=== PATIENT | female | born 1985 | race Native Hawaiian/Other Pacific Islander ===

== ENCOUNTER 2018-11-13 18:13 | Emergency (ER) | payer OTHER ==
[~2018-11-13] VITALS: Ht 165.1 cm; Wt 75.5 kg
[2018-11-13] MEDS ORDERED: SYNT112T2 PO (18:47)
[2018-11-13 18:50] LABS: BASO # 0.1 10^3/uL (0.0-0.2); BASO % 0.8 % (0.0-1.0); EOS # 0.1 10^3/uL (0.0-0.5); EOS % 2.4 % (0.0-3.0); HEMATOCRIT 34.3 % (36.0-47.0); HEMOGLOBIN 11.3 g/dl (12.0-15.5); LYMPH # 1.5 10^3/uL (1.5-5.0); LYMPH % 24.8 % (24.0-44.0); MEAN CORPUSCULAR HEMOGLOBIN 30.2 pg (27.0-33.0); MEAN CORPUSCULAR HGB CONC 32.9 g/dl (32.0-36.5); MEAN CORPUSCULAR VOLUME 91.7 fl (80.0-96.0); MONO # 0.3 10^3/uL (0.0-0.8); MONO % 4.6 % (0.0-5.0); NEUTROPHILS % 67.1 % (36.0-66.0); PLATELET COUNT, AUTOMATED 234 10^3/uL (150-450); RED BLOOD COUNT 3.74 10^6/uL (4.00-5.40); WHITE BLOOD COUNT 5.9 10^3/uL (4.0-10.0)
[2018-11-13 19:16] LABS: BLOOD UREA NITROGEN 9 MG/DL (7-18); CALCIUM LEVEL 8.8 MG/DL (8.5-10.1); CARBON DIOXIDE LEVEL 30 MEQ/L (21-32); CHLORIDE LEVEL 107 MEQ/L (98-107); GLOMERULAR FILTRATION RATE > 60.0 (>60); GLUCOSE, FASTING 106 MG/DL (70-100); HCG, SERUM QUANTITATIVE 556 MIU/ML; SODIUM LEVEL 140 MEQ/L (136-145)
--- NOTE | 2018-11-13 22:29 | REPVR ---
EXAM: US First Trimester, Transabdominal and US , Transvaginal EXAM DATE/TIME: 11/13/2018 9:59 PM CLINICAL HISTORY: 33 years old, female; complicated by abdominal or pelvic pain; Lower; First trimester; Gestational age or lmp: 6w3d; ; Additional info: Vaginal bleeding TECHNIQUE: Imaging protocol: Real-time transabdominal obstetrical ultrasound of the maternal pelvis and a first trimester , less than 14 weeks 0 days, with image documentation. Transvaginal imaging was used for better evaluation of the fetus and adnexa. COMPARISON: No relevant prior studies available. FINDINGS: Other findings: 5 mm demonstrated. GESTATION: Gestation: Small gestational sac demonstrated within the uterine fundus with an average sac size of 7.7 mm. No pole demonstrated. Heart rate: No cardiac activity demonstrated. Amniotic/chorionic fluid: Amniotic and chorionic fluid are normal for gestational age. BIOMETRY: Estimated gestational age: Gestational age based on sac size is 5 weeks 4 days versus 6 weeks 3 days using LMP of 09/29/2018. MATERNAL: Uterus: Uterus measures 8.1 x 4.4 x 5.1 cm. Cervix: Unremarkable. Right adnexa: Right ovary measures 2.9 x 1.1 x 1 cm. Left adnexa: Left ovary measures 2.9 x 1.7 x 1.5 cm. Small cyst in the left ovary measures 1.6 1.4 x 1.2 cm. Intraperitoneal: Trace free fluid in the cul-de-sac. IMPRESSION: Probable early intrauterine gestation of 5 weeks 4 days before visualization of the fetus. Reported beta-hCG levels are weakly positive. Followup ultrasound recommended to document the presence of a pole and cardiac activity and to exclude early failure. Electronically signed by: David Beckett On 11/13/2018 22:29:00 PM
[2018-11-13 23:12] VITALS: BP 138/78
== END 2018-11-13 23:20 | disposition home or self-care (01) ==
LOC: M ED 18:13
DX: O20.0 Threatened abortion (principal); O34.81 Maternal care for other abnormalities of pelvic organs, first trimester; N83.202 Unspecified ovarian cyst, left side; Z3A.01 Less than 8 weeks gestation of pregnancy; O99.281 Endocrine, nutritional and metabolic diseases complicating pregnancy, first trimester; E03.9 Hypothyroidism, unspecified; Z79.890 Hormone replacement therapy

== ENCOUNTER 2018-11-14 13:43 | Day surgery (SDC) | payer OTHER ==
[~2018-11-14] VITALS: Ht 165.1 cm; Wt 74.9 kg
[~2018-11-14 13:43] MED LIST: SYNT112T2 PO
[2018-11-14 14:26] LABS: BASO # 0.1 10^3/uL (0.0-0.2); BASO % 0.7 % (0.0-1.0); EOS # 0.1 10^3/uL (0.0-0.5); EOS % 1.8 % (0.0-3.0); HEMATOCRIT 36.1 % (36.0-47.0); HEMOGLOBIN 12.2 g/dl (12.0-15.5); LYMPH # 1.1 10^3/uL (1.5-5.0); LYMPH % 14.3 % (24.0-44.0); MEAN CORPUSCULAR HEMOGLOBIN 31.7 pg (27.0-33.0); MEAN CORPUSCULAR HGB CONC 33.8 g/dl (32.0-36.5); MEAN CORPUSCULAR VOLUME 93.8 fl (80.0-96.0); MONO # 0.3 10^3/uL (0.0-0.8); MONO % 4.5 % (0.0-5.0); NEUTROPHILS # 5.8 10^3/uL (1.5-8.5); NEUTROPHILS % 78.4 % (36.0-66.0); PLATELET COUNT, AUTOMATED 237 10^3/uL (150-450); RED BLOOD COUNT 3.85 10^6/uL (4.00-5.40); WHITE BLOOD COUNT 7.3 10^3/uL (4.0-10.0)
[2018-11-14] MEDS ORDERED: NS 1,000 ML IV ONE (17:45)
[2018-11-14 18:12] LABS: FREE T4 1.09 NG/DL (0.76-1.46); THYROID STIMULATING HORMONE 3.62 uIU/ML (0.358-3.740)
[2018-11-14] MEDS ORDERED: ROCURONIUM BROMIDE 50 MG/5 ML VIAL As Ordered ONE (18:38)
[2018-11-14] MEDS ORDERED: LIDOCAINE 2% INJ 100 MG/5 ML SDV (FOR ANES.) As Ordered ONE (18:38)
[2018-11-14] MEDS ORDERED: dexameTHASONE 4 MG/ML 1ML VIAL (J1100) As Ordered ONE (18:38)
[2018-11-14] MEDS ORDERED: ONDANSETRON 4MG/2ML VIAL (J2405) As Ordered ONE (18:38)
[2018-11-14] MEDS ORDERED: PROPOFOL 200 MG/20 ML VIAL As Ordered ONE (18:38)
[2018-11-14] MEDS ORDERED: fentaNYL 100 MCG/2 ML INJECTION (J3010) As Ordered ONE (18:39)
[2018-11-14] MEDS ORDERED: MIDAZOLAM INJ 2 MG/2 ML VIAL (J2250) As Ordered ONE (18:39)
[2018-11-14] MEDS ORDERED: ACETAMINOPHEN 650 MG SUPP As Ordered ONE (19:24)
[2018-11-14] MEDS ORDERED: OXYTOCIN INJ 10 UNITS/ML VIAL (J2590) As Ordered ONE (19:37)
[2018-11-14] MEDS ORDERED: SUGAMMADEX SODIUM 500 MG/5 ML VIAL (BRIDION) As Ordered ONE (19:41)
[2018-11-14] MEDS ORDERED: KETOROLAC 60 MG/2 ML VIAL (J1885) As Ordered ONE (19:45)
[2018-11-14] MEDS ORDERED: KETOROLAC 30 MG/ML VIAL (J1885) IV PRN (20:00)
[2018-11-14] MEDS ORDERED: ePHEDrine SULFATE 25 MG/5 ML(5MG/ML) SYRINGE As Ordered ONE (20:03)
[2018-11-14] MEDS ORDERED: fentaNYL 100 MCG/2 ML INJECTION (J3010) IV PRN (20:15)
[2018-11-14] MEDS ORDERED: LR 1,000 ML IV SCH (20:15)
[2018-11-14] MEDS ORDERED: PERCOCET 5MG/325MG TAB PO PRN (20:15)
[2018-11-14] MEDS ORDERED: ONDANSETRON 4MG/2ML VIAL (J2405) IV PRN (20:15)
--- NOTE | 2018-11-14 20:25 | HPE ---
DATE OF ADMISSION: 11/14/2018 This lady is a 33-year-old 4, para 2, abortus 1, last menstrual period (LMP) was 09/29/2018. She was seen yesterday in the emergency department with a quant of 556 and vaginal bleeding. Ultrasound suggested intrauterine contents suggestive of early . She returned today to the emergency room bleeding more significantly with cramping and clotting and severe pain. Her quant was 512. PAST HISTORY: In 2007, female, normal delivery 40 weeks, 6 pounds 7 ounces. 2009, female, spontaneous vaginal delivery, 40 weeks, 6 pounds. 2016, suction curette for 12-week gestation. She has also had wisdom teeth removed. She works in the [employer]. 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 Her last period was September 29, 2018. She has hypothyroidism, takes Synthroid, although she has not had her thyroid checked since 2018. ALLERGIES: She has no allergies. Her blood pressure today is 113/62, respirations are 21, pulse is 67, temperature 98.4, hemoglobin 12.2, hematocrit 36.1 and platelets are 237. Her quant as mentioned is 512, she is O+. The rest of examination, the os is open. There is some blood fresh and old and the uterine contents are still present. The rest examination, she is normocephalic, atraumatic. Neck: Full range of motion. Pupils equal and reactive to light. Distal pulses symmetric. No evidence of deep vein thrombosis (DVT), pulmonary emboli (PE) or superficial phlebitis. Chest is clear in bilateral bases. No wheezes or rhonchi. No CVA tenderness. Abdomen soft. She has no rashes, lesions or pruritus. No arthralgia, myalgia. No complaint of joint pain. No complaint of cough, wheeze, shortness of breath or dyspnea on exertion. No nausea, vomiting, diarrhea or constipation. We discussed with her the option of having a suction curettage at a planned interval. Risks and benefits of her surgery including hemorrhage, infection, perforation, , reoperation, continue retained products of conception, the possibility of endometritis. The patient understood after 25-minutes discussion regarding the risks and benefits of the surgery, agree, had a signed consent form. We now await, anesthesia for evaluation and operative time. In summary, we have an early gestation with retained products of conception booked for suction curettage.
[2018-11-14 21:30] VITALS: BP 126/81
--- NOTE | 2018-11-16 07:04 | RO ---
DATE OF PROCEDURE: 11/14/2018 PREOPERATIVE DIAGNOSIS: Incomplete . POSTOPERATIVE DIAGNOSIS: Incomplete . OPERATION PROPOSED: Suction curettage. OPERATION PERFORMED: Suction curettage. ANESTHESIA: General. ESTIMATED BLOOD LOSS: Less than 20 mL. SURGERON: Dr. Noe Toro After adequate time-out, prepped and draped in lithotomy position, acetaminophen suppository 1300 grams per rectum, sequentials in place. No antibiotics required. Bladder was drained for 50 mL of clear urine. Weighted speculum in the vagina, a single-tooth tenaculum on the anterior lip of the cervix. Uterus sounded to a depth of 9 cm, dilated to a Proctor 10, curved suction curette applied. Curettaged the cavity smooth. Uterus placed in anatomical position, well contracted under Pitocin. The patient is O positive and does not require RhoGAM. Was sent to recovery in good condition.
== END 2018-11-14 21:30 | disposition home or self-care (01) ==
LOC: M ED 13:43 → M SDC 13:46
PROVIDERS: ATTEND Obstetrics & Gynecology
DX: O02.1 Missed abortion (principal); E03.9 Hypothyroidism, unspecified; Z79.899 Other long term (current) drug therapy
CPT/HCPCS: 59820; 80047; 84439; 84443; 84702; 85025; 88305; 96360; 99284; J1100; J1885; J2250; J2405; J2590; J3010

== ENCOUNTER 2020-04-15 06:04 | Outpatient (CLI) | payer OTHER ==
[~2020-04-15] VITALS: Ht 165.1 cm; Wt 88.8 kg
[2020-04-15 06:27] VITALS: BP 111/73
[2020-04-15 06:44] LABS: HEMATOCRIT 36.4 % (36.0-47.0); HEMOGLOBIN 11.8 g/dl (12.0-15.5); MEAN CORPUSCULAR HEMOGLOBIN 30.3 pg (27.0-33.0); MEAN CORPUSCULAR HGB CONC 32.4 g/dl (32.0-36.5); MEAN CORPUSCULAR VOLUME 93.6 fl (80.0-96.0); PLATELET COUNT, AUTOMATED 266 10^3/uL (150-450); RED BLOOD COUNT 3.89 10^6/uL (4.00-5.40); WHITE BLOOD COUNT 9.1 10^3/uL (4.0-10.0)
--- NOTE | 2020-04-15 09:40 | IPNPDOC ---
Obstetrical Progress Note Date of Service Apr 15, 2020 Objective Vital Signs Date Time Temp Pulse Resp B/P (MAP) Pulse Ox O2 Delivery O2 Flow Rate FiO2 04/15/20 06:27 98.3 96 18 111/73 (86) Assessment Heart Rate (FHR): 130 Variability: Moderate Accelerations: Positive Decelerations: None Heart Rate Tracing: Category I Tocometer Contractions: Yes Frequency: irregular Assessment and Plan Status: Reassuring Additional Comments Patient is at 35yo at 37+3 who presented today for ECV but was cephalic on US on arrival. She has normal VS and CAT I tracing. She was given routine OB return precautions and she has a KIKO apt scheduled. She is to notify me if she feels large shifts or feel like he baby has flipped. I will check her baby again at the next apt. EBONY LOVING DO Apr 15, 2020 09:40
== END 2020-04-15 07:25 | disposition home or self-care (01) ==
LOC: M LDO 06:04
PROVIDERS: ATTEND Obstetrics & Gynecology
DX: O32.1XX0 Maternal care for breech presentation, not applicable or unspecified (principal); Z3A.37 37 weeks gestation of pregnancy
CPT/HCPCS: 36415; 59025; 76815; 85027; 86780; 86850; 86900; 86901; G0378; G0463

== ENCOUNTER 2020-05-02 03:17 | Inpatient (IN) | payer OTHER ==
[~2020-05-02] VITALS: Ht 165.1 cm; Wt 93.0 kg
[2020-05-02] VITALS (44 sets, daily range): BP systolic 113–228; BP diastolic 67–128
[2020-05-02 04:26] LABS: HEMATOCRIT 32.6 % (36.0-47.0); HEMOGLOBIN 10.8 g/dl (12.0-15.5); MEAN CORPUSCULAR HEMOGLOBIN 30.1 pg (27.0-33.0); MEAN CORPUSCULAR HGB CONC 33.1 g/dl (32.0-36.5); MEAN CORPUSCULAR VOLUME 90.8 fl (80.0-96.0); PLATELET COUNT, AUTOMATED 244 10^3/uL (150-450); RED BLOOD COUNT 3.59 10^6/uL (4.00-5.40); WHITE BLOOD COUNT 8.9 10^3/uL (4.0-10.0)
--- NOTE | 2020-05-02 04:26 | HPEPDOC ---
Obstetrical History & Physical General Date of Admission History of Present Illness 34yo at 39+6 presents for SROM at 0100 clear no odors. She endorsed some pink vaginal bleeding when she wipes. She endorsed regular painful contractions ever 5 minutes. She reports good movement. She denied n/v/d, cp, sob, tom, visual changes, f/c, urinary sx. Antepartum Course Height (inches): 65 Pre- weight (lbs.): 152 Admission Weight (lbs.): 203 Change in Weight (lbs.): 51 Past Medical History Past Obstetrical History : Past Obstetrical History: Multigravida ( x2 uncomplicated largest 7#8, SAB x1 expectant management) Type of Delivery: Spontaneous Vaginal Del. FORGING OPERATOR History: Human papillomavirus(HPV) (2018), History of STD (chlamydia ) Past Medical History Medical History hypothyroidism Surgical History: [place] teeth Family History Significant Family History: No pertinent family hx Social History Marital Status: Family situation: Spouse/partner home Psychosocial History: No pertinent psych hx * Smoker: non-smoker Alcohol: Denies Drugs: denies Imunizations Tdap status: current Influenza Status: current Allergies Coded Allergies: No Known Allergies (Unverified , 11/13/18) Medications Scheduled Levothyroxine Sodium (Synthroid) 112 Mcg Tablet, 112 MCG PO DAILY Physical Examination Physical Examination GENERAL: Alert and oriented times three. BREAST: . ABDOMEN: Gravid and non-tender to touch. FETUS: Is vertex (VTX) by sterile vaginal examination (SVE), fetus is vertex (VTX) by exam and US. Ferning positive, nitrazine positive (although some bleeding from cervical change), pooling slight, MVP 6cm. HEART RATE: Regular rate and rhythm. LUNGS: Clear to auscultation (CTA). EXTREMITIES: No edema. No clonus. Laboratory Data Urine Culture: Urinary Tract Infection Pertinent Laboratoy Data Blood Type: O+ RBC Antibody Screen: Negative HIV: Negative Hepatitis B: Negative Rapid Plasma Reagin: Nonreactive Rubella: Immune Varicella: Nonreactive Chlamydia/Gonorrhea: Negative Group B Streptococcus: Negative Quad Screen Test: Negative Glucose Tolerance Test: 104 Anatomy Ultrasound Placenta Location: Anterior Normal Anatomy: No (russell cisterna magna) Estimated Weight (grams): 3800 Steroid Therapy Steroid Therapy: No Vaginal Examination Dilation: 4 cm Effacement: 50% Cervical Consistency: Soft Cervical Position: Anterior Presentation: Cephalic presentation (by exam and US) Assessment Heart Rate (FHR): 130 Variability: Moderate Accelerations: Positive Decelerations: None Tocometer Contractions: Yes Frequency: regular Multi-drug resistant Organism: No history of MDRO Assessment/Plan Assessment 34yo at 39+6 presents for SROM at 0100 clear no odors. Ferning positive, nitrazine positive (although some bleeding from cervical change), pooling slight, MVP 6cm. Normal VS CAT I tracing reactive. SVE on admit /-3. 1. excessive weight gain 50# 2. hypothyroidism - 125mcg synthroid in , 112mcg pre- (has at home) 3. russell cisterna magna (per MFM likely normal variant) 4. varicella non-[place] 5. LV echogenic foci, normal genetic screening 6. anemia of , admit H/H 7. desires minipill (has at home) 8. unstable lie, cephalic at time of ECV, cephalic on admit Plan Admit and orient. Climatologist and consent. Diet: clears Group B Streptococcus (GBS) [negative]. Labs and intravenous (IV) per unit protocol. Counseled on Pitocin and induction of labor (IOL). Lactated Ringers (LR): saline lock iv Anticipate [normal spontaneous delivery ()]. will recheck in 2h and if unchanged start pit for augmentation C-S as appropriate. EBONY LOVING DO May 02, 2020 04:26
[2020-05-02] MEDS ORDERED: OXYTOCIN 30 UNITS IN 0.9% NaCl 500ML IV BAG (J2590) As Ordered ONE (05:43)
[2020-05-02] MEDS ORDERED: OXYTOCIN DRIP 30 UNITS in IV 1 EA IV SCH ×2 (05:45→17:20)
[2020-05-02] MEDS: LR 1,000 ML IV SCH ×4 (06:03→16:00)
--- NOTE | 2020-05-02 07:20 | IPNPDOC ---
Obstetrical Progress Note Date of Service May 02, 2020 Subjective Strip note. RN reports pt has some increased pressure but is tolerating well. Assessment Heart Rate (FHR): 135 Variability: Moderate Accelerations: Positive Decelerations: Early Heart Rate Tracing: Category I Tocometer Contractions: Yes Assessment and Plan Status: Reassuring Anticipate: Vaginal Delivery Additional Comments CAT I tracing, reactive. No pt issues per nursing. VS with mild range x2, severe range x1 with mild repeat. Will order tox labs. Per RN no si/sx of pre-e at this time. Will continue to monitor and reassess in 2-4h or sooner if clinically indicated. EBONY LOVING DO May 02, 2020 07:20
[2020-05-02 10:52] LABS: HEMATOCRIT 36.6 % (36.0-47.0); MEAN CORPUSCULAR HEMOGLOBIN 30.4 pg (27.0-33.0); MEAN CORPUSCULAR HGB CONC 32.8 g/dl (32.0-36.5); MEAN CORPUSCULAR VOLUME 92.7 fl (80.0-96.0); PLATELET COUNT, AUTOMATED 258 10^3/uL (150-450); RED BLOOD COUNT 3.95 10^6/uL (4.00-5.40); WHITE BLOOD COUNT 13.4 10^3/uL (4.0-10.0)
[2020-05-02 11:22] LABS: ALBUMIN 2.8 GM/DL (3.2-5.2); ALT/SGPT 27 U/L (12-78); BILIRUBIN,TOTAL 0.3 MG/DL (0.2-1.0); BLOOD UREA NITROGEN 6 MG/DL (7-18); CALCIUM LEVEL 8.6 MG/DL (8.5-10.1); CARBON DIOXIDE LEVEL 25 MEQ/L (21-32); CHLORIDE LEVEL 106 MEQ/L (98-107); CREATININE FOR GFR 0.77 MG/DL (0.55-1.30); GLOMERULAR FILTRATION RATE > 60.0 (>60); GLUCOSE, FASTING 90 MG/DL (70-100); LDH LACTATE DEHYDROGENASE 227 U/L (84-246); POTASSIUM SERUM 4.3 MEQ/L (3.5-5.1); SODIUM LEVEL 139 MEQ/L (136-145); TOTAL PROTEIN 6.6 GM/DL (6.4-8.2); URIC ACID 4.8 MG/DL (2.6-6.0)
--- NOTE | 2020-05-02 12:48 | IPNPDOC ---
Obstetrical Progress Note Date of Service May 02, 2020 Subjective 35yo at 39+6wks admitted for SROM and started on pitocin augmentation of labor. She reports feeling ctx's and pressure but no urge to push. She declines epidural. She desires SVE. Objective Vital Signs Date Time Temp Pulse Resp B/P (MAP) Pulse Ox O2 Delivery O2 Flow Rate FiO2 05/02/20 11:00 97.5 60 16 173/83 (113) Assessment Heart Rate (FHR): 135 Variability: Moderate Accelerations: None Decelerations: Early Heart Rate Tracing: Category I Tocometer Contractions: Yes Frequency: every 2-2 min. Sterile Vaginal Examination Dilation: 9 cm Effacement (%): 100% Station: 0 Cervical Consistency: Soft Cervical Position: Lateral (right lateral) Postion/Presentation: Cephalic presentation Assessment and Plan Status: Reassuring Group B Streptococcus: Negative Anticipate: Vaginal Delivery Additional Comments Patient has made excellent progress. SVE notable for 9/c/0 with BBOW. Cervical exam notable for cervix only on right lateral from 7 to 11 o'clock position. Patient desired AROM of BBOW that was performed notable for light meconium. She was assisted to hands/knees position with support of the back of the bed per her request for position change. Advised that the pressure and contractions will continue but that I would recommend avoiding starting pushing until she feels ur ge to push. She acknowledged understanding. FHRT cat I. Pitocin at 4mU/min. Patient desires to proceed, safe to continue. JEROME JOHNSON DO May 02, 2020 12:48
--- NOTE | 2020-05-02 12:50 | IPNPDOC ---
Text Note Date of Service The patient was seen on 05/02/20. NOTE Patient noted to have severe-range BP develop with worsening of painful ctx's. Denies ROD. visual changes, RUQ pain. PIH labs were not completed earlier when initially ordered therefore completed now and noted to be normal (unable to obtain urine protein due to blood/amniotic fluid and patient declines cath at this time). As patient is close to delivery at this time, will monitor closely. If severe-range BP persist after delivery recommend starting Mg therapy for maternal neuroprotection. VS,Fishbone, I+O VS, Fishbone, I+O Laboratory Tests 05/02/20 04:19 05/02/20 10:39 Vital Signs Date Time Temp Pulse Resp B/P (MAP) Pulse Ox O2 Delivery O2 Flow Rate FiO2 05/02/20 11:00 97.5 60 16 173/83 (113) JEROME JOHNSON DO May 02, 2020 12:50
[2020-05-02] MEDS ORDERED: FENTANYL 2MCG/ML ROPIVACAINE 0.2% IN 0.9% NACL 100ML IVBAG As Ordered ONE (13:30)
[2020-05-02 16:02] LABS: TOTAL PROTEIN,RANDOM URINE 136.7 MG/DL (0.0-12.0)
[2020-05-02] MEDS ORDERED: ePHEDrine SULFATE 25 MG/5 ML(5MG/ML) SYRINGE IV PRN (16:45)
[2020-05-02] MEDS ORDERED: NALOXONE INJ 0.4MG/1ML VIAL (J2310 PER 1MG) IV PRN (16:45)
[2020-05-02] MEDS ORDERED: EPIDURAL/PCA KEYS XX PRN (16:45)
[2020-05-02] MEDS ORDERED: FENTANYL/ROPIVACAINE/NACL BAG 100 ML EPIDURAL SCH (16:45)
[2020-05-02] MEDS ORDERED: EPIDURAL COMMENT XX SCH (16:45)
[2020-05-02] MEDS ORDERED: LACTATED RINGER'S 1000 ML IV PRN (16:45)
[2020-05-02] MEDS ORDERED: ONDANSETRON 4MG/2ML VIAL IV PRN (16:45)
[2020-05-02] MEDS ORDERED: REFRIGERATOR IV KEYS XX PRN (16:45)
[2020-05-02] MEDS ORDERED: diphenhydrAMINE 50MG/ML VIAL (J1200) IV PRN (16:45)
[2020-05-02] MEDS ORDERED: ACETAMINOPHEN 500 MG TAB PO PRN (17:30)
[2020-05-02] MEDS ORDERED: IBUPROFEN 600MG TAB PO PRN (17:30)
[2020-05-02] MEDS ORDERED: METHYLERGONOVINE MALEATE 0.2 MG TAB PO PRN (17:30)
[2020-05-02] MEDS ORDERED: DIBUCAINE 1% OINTMENT 30GM TOP PRN (17:30)
[2020-05-02] MEDS ORDERED: IBUPROFEN 800 MG TAB PO PRN (17:30)
[2020-05-02] MEDS ORDERED: ACETAMINOPHEN TAB 650MG DOSE (2X325MG) PO PRN (17:30)
[2020-05-02] MEDS ORDERED: DOCUSATE SODIUM 100MG CAPSULE PO PRN (17:30)
[2020-05-02 17:32] LABS: CORD GAS ABE A -11.9; CORD GAS HCO3 A 20.2 MEQ/L; CORD GAS O2 SAT A 34.3 %; CORD GAS PCO2 A 74.1 mmHg; CORD GAS PH A 7.053 UNITS; CORD GAS PO2 A 21.2 mmHg; CORD GAS SBC A 14.1 MEQ/L; CORD GAS TCO2 A 22.5 MEQ/L
[2020-05-02 17:40] LABS: CORD GAS ABE V -9.7; CORD GAS HCO3 V 19.7 MEQ/L; CORD GAS O2 SAT V 35.1 %; CORD GAS PCO2 V 55.9 mmHg; CORD GAS PH V 7.164 UNITS; CORD GAS PO2 V 18.9 mmHg; CORD GAS SBC V 15.5 MEQ/L; CORD GAS TCO2 V 21.4 MEQ/L
--- NOTE | 2020-05-02 17:48 | DNPDOC ---
[facility] Delivery Note Delivery Note DATE OF DELIVERY: 05/02/2020 PREDELIVERY DIAGNOSIS: 39+6/7 weeks' gestation and labor. POST DELIVERY DIAGNOSIS: Delivered. PROCEDURE: Vacuum-assisted vaginal delivery. MANAGER NICU: Dr. Jerome Zavala ANESTHESIA: Epidural ESTIMATED BLOOD LOSS: 100mL. FINDINGS: 8 pound 2 ounce 3682g male , Score 3/6/9, nuchal cord times x1. DELIVERY SUMMARY: Patient found to be c/c/+1 and began pushing. FHRT cat II notable for variable decels to the 80s with minimal variability. Positional changes applied with improvement in FHR to allow for continued pushing efforts. With descent of head to +3 station over several pushes, worsening of FHR to persistently in 80s- 90s. Patient pushing well but unable to effect immediate delivery. Patient verbally counseled on recommendation for operative vaginal delivery assistance using Kiwi vacuum. Briefly reviewed risks, benefits, alternatives, and indications and patient amenable to vacuum-assistance. Bladder had been drained by recently-removed paredes catheter. position JAIME. Kiwi vacuum applied over the flexion point and suction increased to 60mmHg when patient began pushing with contraction. Over 2 sets of contractions and 1 pop-off, head delivered in JAIME position. The suction was released in between contractions and then released prior to Kiwi vacuum removed. Meconium fluid noted. Tight nuchal cord x1 delivered through then manually reduced. Anterior shoulder delivered without difficulty followed by posterior shoulder and body. Infant placed on maternal abdomen with airway cleared aggressively with suction due to presence of meconium. Infant initially with good tone but then became floppy therefore three vessel cord clamped x2 and cut by 45 seconds of life and taken to warmer. Pitocin IV bolus initiated. Cord gases obtained. Cord blood sample obtained. Inspection revealed no lacerations. Third stage spontaneous with intact placenta. Fundal massage revealed firm uterine tone. EBL 100ml. Infant was taken to NICU for respiratory support and per unit protocol for use of vacuum in delivery. Mother stable upon my leaving the room. Item Value Date Time Cord Arterial Blood pH 7.053 UNITS 05/02/201718 Cord Arterial Blood PCO2 74.1 mmHg 05/02/201718 Cord Arterial Blood PO2 21.2 mmHg 05/02/201718 Cord Arterial Blood HCO3 20.2 MEQ/L 05/02/201718 Cord Arterial Blood Total CO2 22.5 MEQ/L 05/02/201718 Cord Arterial Blood Base Excess -11.9 05/02/201718 Cord Arterial Base Excess (Standard 14.1 MEQ/L 05/02/201718 Cord Arterial Bld Oxygen Saturation 34.3 % 05/02/201718 Item Value Date Time Cord Venous Blood pH 7.164 UNITS 05/02/201718 Cord Venous Blood PCO2 55.9 mmHg 05/02/201718 Cord Venous Blood PO2 18.9 mmHg 05/02/201718 Cord Venous Blood HCO3 19.7 MEQ/L 05/02/201718 Cord Venous Blood Total CO2 21.4 MEQ/L 05/02/201718 Cord Venous Base Excess (Actual) -9.7 05/02/201718 Cord Venous Base Excess (Standard) 15.5 MEQ/L 05/02/201718 Cord Venous Blood Oxygen Saturation 35.1 % 05/02/201718 JEROME ZAVALA DO May 02, 2020 17:48
[2020-05-02] MEDS ORDERED: SLF 3 ML SYR IV PRN (18:30)
[2020-05-02] MEDS: SLF 3 ML SYR IV SCH (22:00)
[2020-05-03 02:00] VITALS: BP 111/56
[2020-05-03 06:00] VITALS: BP 123/72
[2020-05-03] MEDS: SLF 3 ML SYR IV SCH ×3 (06:21→19:54)
[2020-05-03] MEDS: LEVOTHYROXINE 125MCG TABLET (0.125MG) PO SCH (06:21)
[2020-05-03] MEDS ORDERED: diphenhydrAMINE 50MG CAP PO STA (07:08)
[2020-05-03] MEDS ORDERED: ACETAMINOPHEN 500 MG TAB PO ONE (07:15)
[2020-05-03 07:50] VITALS: BP 111/65
--- NOTE | 2020-05-03 07:57 | IPNPDOC ---
Progress Note Date of Service: May 03, 2020 Day#: 1 Progress Note SUBJECT: Modesta is a 35yo s/p VAVD for NRFHR over intact perineum, doing well day #1 with intrapartum course c/b preeclampsia with normal toxemia labs but BP resolved to hypotensive/normotensive with epidural placement and remained normotensive after delivery therefore was not treated with magnesium therapy. She has been ambulating, voiding spontaneously without issue and tolerating regular diet. Breast feeding without issue. Reports lochia is decreasing. OBJECTIVE: VITAL SIGNS: Within normal limits, afebrile. Alert and oriented times three. Abdomen: Fundus firm at U-2. Soft, NTTP. ASSESSMENT: Modesta is a 35yo s/p VAVD for NRFHR over intact perineum, doing well day #1. Intrapartum course c/b preeclampsia but BP resolved prior to starting treatment with epidural placement and have continued to be normotensive since. She has been afebrile, hemodynamically stable with no evidence of infection. PLAN: 1. Discharge to home tomorrow. 2. Tylenol and Motrin for pain. 3. Encourage breast feeding and ambulation. 4. Encourage regular diet as tolerated. 5. BP check 2-3 days after discharge in clinic. 6. Discussed return precautions at length. VS, I&O, [facility] Signs/I&O Vital Signs Date Time Temp Pulse Resp B/P (MAP) Pulse Ox O2 Delivery O2 Flow Rate FiO2 05/03/20 06:00 98.0 85 18 123/72 (89) 100 Room Air I&O- Last 24 Hours up to 6 AM 05/03/20 05:59 Intake Total 994 ml Output Total 1950 ml Balance -956 ml Laboratory Data 24H LABS Laboratory Tests 2 05/02/20 10:39: Nucleated Red Blood Cells % (auto) 0.0, Anion Gap 8, Glomerular Filtration Rate > 60.0, Uric Acid 4.8, Calcium Level 8.6, Total Bilirubin 0.3, Aspartate Amino Transf (AST/SGOT) 24, Alanine Aminotransferase (ALT/SGPT) 27, Alkaline Phosphatase 151H, Lactate Dehydrogenase 227, Total Protein 6.6, Albumin 2.8L, Albumin/Globulin Ratio 0.7L 05/02/20 15:25: Urine Random Creatinine 228.0, Urine Random Total Protein 136.7H 05/02/20 17:19: Cord Arterial Blood pH 7.053, Cord Arterial Blood PCO2 74.1, Cord Arterial Blood PO2 21.2, Cord Arterial Blood HCO3 20.2, Cord Arterial Blood Total CO2 22.5, Cord Arterial Blood Base Excess -11.9, Cord Arterial Base Excess (Standard 14.1, Cord Arterial Bld Oxygen Saturation 34.3, Cord Venous Blood pH 7.164, Cord Venous Blood PCO2 55.9, Cord Venous Blood PO2 18.9, Cord Venous Blood HCO3 19.7, Cord Venous Blood Total CO2 21.4, Cord Venous Base Excess (Actual) -9.7, Cord Venous Base Excess (Standard) 15.5, Cord Venous Blood Oxygen Saturation 35.1 CBC/BMP Laboratory Tests 05/02/20 10:39 JEROME JOHNSON DO May 03, 2020 07:57
[2020-05-03] MEDS: PRENATAL VITAMINS CHEWABLE TABLET PO SCH (08:42)
[2020-05-03 12:05] VITALS: BP 114/57
[2020-05-03 18:00] VITALS: BP 131/72
--- NOTE | 2020-05-03 18:29 | IPN ---
PROGRESS NOTE DATE: 05/03/2020 This patient and her requested circumcision of their male . After discussing risks and benefits of circumcision, the medical and nonmedical indications, the penile block and aftercare, expressed understanding of penile block, aftercare and bleeding, signed a consent form. All questions were answered; 20 minute discussion. We wait for clearance by the hand dry cleaner.
[2020-05-04 05:42] VITALS: BP 156/77
[2020-05-04] MEDS: LEVOTHYROXINE 125MCG TABLET (0.125MG) PO SCH (06:02)
[2020-05-04] MEDS ORDERED: LEVO125T4 PO (08:01)
[2020-05-04] MEDS ORDERED: DOK1CAP7 PO (08:01)
[2020-05-04] MEDS ORDERED: IBUP-1022 PO (08:01)
[2020-05-04] MEDS: PRENATAL VITAMINS CHEWABLE TABLET PO SCH (08:51)
--- NOTE | 2020-05-04 10:00 | DSES ---
DISCHARGE SUMMARY DATE OF ADMISSION: 05/02/2020 DATE OF DISCHARGE: 05/04/2020 HISTORY: Patient is a 65-year-old 4, now para 3 admitted at 39 and6 weeks gestation with spontaneous rupture of membranes, had a vacuum assisted delivery, a live male infant, 8 pounds 2 ounces, 3682 grams, scores of 3, 6 and 9 at one, five and ten minutes respectively. Arterial pH was 7.05, base excess -11.9, venous pH 7.16, base excess -9.7. Admitting hemoglobin 10.8, hematocrit 32.6 and platelets 244. Discharge hemoglobin 12.0, hematocrit 36.6 and platelets 258. Vital signs on discharge: Blood pressure 156/77, respirations 16, pulse 82, temperature 98.2. We discussed phlebitis, cystitis, mastitis, endometritis, cellulitis, diet, exercise, pain management, perineal, breast and wound care. PHYSICAL EXAMINATION: Normocephalic, atraumatic. Neck full range of motion. Pupils equal and reactive to light. Distal pulses are symmetric. No evidence of deep venous thrombosis (DVT), pulmonary embolism (PE) or superficial phlebitis. CHEST: Clear bilaterally to bases. No wheezes or rhonchi. No costovertebral angle (CVA) tenderness. ABDOMEN: Soft. Four quadrant bowel sounds are noted. Uterus is 2 below. Lochia is moderate. Perineum is intact. No rashes, lesions or pruritus. No arthralgias or myalgias. No complaint of joint pain. No complaint of cough, wheeze, shortness of breath or dyspnea on exertion. No nausea, diarrhea or constipation. No urgency or frequency. SUMMARY: We have a term gestation, delivered a live male infant. Plans are to pecan picker medications at [place]. Follow up in the office in 2-3 days for blood pressure check and a 6 week OB check. Patient was discharged improved. All questions were answered, 20 minute discussion.
== END 2020-05-04 15:00 | disposition home or self-care (01) | DRG 807 ==
LOC: M LDO 03:17 → M LDI 04:12 → M OBS 20:10
PROVIDERS: ADMIT Obstetrics & Gynecology; ATTEND Obstetrics & Gynecology
PROC: 10D07Z6 Extraction of Products of Conception, Vacuum, Via Natural or Artificial Opening (ICD-10-PCS; principal; 2020-05-02)
PROC: 10907ZC Drainage of Amniotic Fluid, Therapeutic from Products of Conception, Via Natural or Artificial Opening (ICD-10-PCS; 2020-05-02)
DX: O32.0XX0 Maternal care for unstable lie, not applicable or unspecified (principal); Z37.0 Single live birth; O99.284 Endocrine, nutritional and metabolic diseases complicating childbirth; E03.9 Hypothyroidism, unspecified; D64.9 Anemia, unspecified; O99.02 Anemia complicating childbirth; O26.00 Excessive weight gain in pregnancy, unspecified trimester; Z79.899 Other long term (current) drug therapy; O76 Abnormality in fetal heart rate and rhythm complicating labor and delivery; O69.1XX0 Labor and delivery complicated by cord around neck, with compression, not applicable or unspecified; O77.0 Labor and delivery complicated by meconium in amniotic fluid; Z3A.39 39 weeks gestation of pregnancy